=== PATIENT | male | born 1970 | race Caucasian/White ===

== ENCOUNTER 2021-10-11 16:33 | Observation (INO) | payer OTHER ==
[~2021-10-11] VITALS: Ht 182.9 cm; Wt 90.7 kg
[2021-10-11 17:10] LABS: HEMOGLOBIN 17.3 gm/dl (14.0-17.5); RED BLOOD COUNT 5.31 M/UL (4.20-5.50); WHITE BLOOD COUNT 5.3 K/UL (4.5-11.0)
[2021-10-11 17:32] LABS: BUN/CREATININE RATIO 18 (0-10)
[2021-10-12 01:58] LABS: HEMOGLOBIN 16.4 gm/dl (14.0-17.5); RED BLOOD COUNT 5.07 M/UL (4.20-5.50)
[2021-10-12 01:59] LABS: WHITE BLOOD COUNT 7.3 K/UL (4.5-11.0)
[2021-10-12 02:24] LABS: BUN/CREATININE RATIO 22 (0-10)
[2021-10-12] MEDS ORDERED: ASPIRIN EC81 MG PO (11:09)
[2021-10-12] MEDS ORDERED: LIPITOR80 MG PO (11:09)
[2021-10-12] MEDS ORDERED: ENTRESTO 24 MG1 EACH PO (11:10)
[2021-10-12] MEDS ORDERED: CARVEDILOL6.25 MG PO (11:10)
[2021-10-12] MEDS ORDERED: PLAVIX75 MG PO (11:10)
[2021-10-12] MEDS ORDERED: FARXIGA10 MG PO (11:11)
[2021-10-12] MEDS ORDERED: FAMOTIDINE20 MG PO (11:11)
[2021-10-12] MEDS ORDERED: FUROSEMIDE20 MG PO (11:11)
[2021-10-12] MEDS ORDERED: KEPPRA500 MG PO (11:12)
[2021-10-12] MEDS ORDERED: GLIPIZIDE5 MG PO (11:12)
[2021-10-12] MEDS ORDERED: NOVOLIN R100 UNIT/1 INJ (11:17)
[2021-10-12] MEDS ORDERED: RANEXA500 MG PO (11:18)
[2021-10-13 06:38] LABS: HEMOGLOBIN 16.2 gm/dl (14.0-17.5); RED BLOOD COUNT 5.06 M/UL (4.20-5.50); WHITE BLOOD COUNT 5.8 K/UL (4.5-11.0)
[2021-10-13 07:01] LABS: BUN/CREATININE RATIO 26 (0-10)
[2021-10-13] MEDS ORDERED: AUGMENTIN 875-1 EACH PO (09:05)
[2021-10-13] MEDS ORDERED: FARXIGA10 MG PO (12:23)
== END 2021-10-13 16:31 | disposition other institution (70) ==
LOC: ER1 16:33 → CDU 18:38 → MED SURG 4 20:46
PROVIDERS: Emergency Medicine; ADMIT Internal Medicine
DX: R07.89 Other chest pain (principal); I25.10 Atherosclerotic heart disease of native coronary artery without angina pectoris; I25.5 Ischemic cardiomyopathy; I11.0 Hypertensive heart disease with heart failure; I50.22 Chronic systolic (congestive) heart failure; I25.2 Old myocardial infarction; E11.40 Type 2 diabetes mellitus with diabetic neuropathy, unspecified; E78.5 Hyperlipidemia, unspecified; Z95.5 Presence of coronary angioplasty implant and graft; Z88.2 Allergy status to sulfonamides; Z88.8 Allergy status to other drugs, medicaments and biological substances; Z79.02 Long term (current) use of antithrombotics/antiplatelets; Z79.4 Long term (current) use of insulin; Z79.899 Other long term (current) drug therapy; Z20.822 Contact with and (suspected) exposure to COVID-19
CPT/HCPCS: ECHO; 36415; 71045; 80048; 80053; 80307; 81001; 82550; 82553; 82962; 83036; 83735; 83874; 83880; 84484; 85025; 85027; 93005; 93306; 96372; 96374; 99285; G0378; J1650; J2270; U0002

== ENCOUNTER 2021-10-23 01:00 | Inpatient (IN) | payer OTHER ==
[~2021-10-23] VITALS: Ht 182.9 cm; Wt 90.7 kg
[~2021-10-23 01:00] MED LIST: ASPIRIN EC81 MG PO; AUGMENTIN 875-1 EACH PO; CARVEDILOL6.25 MG PO; ENTRESTO 24 MG1 EACH PO; FAMOTIDINE20 MG PO; FARXIGA10 MG PO; FUROSEMIDE20 MG PO; GLIPIZIDE5 MG PO; KEPPRA500 MG PO; LIPITOR80 MG PO; NOVOLIN R100 UNIT/1 INJ; PLAVIX75 MG PO; RANEXA500 MG PO
[2021-10-23 05:13] LABS: RED BLOOD COUNT 5.22 M/UL (4.20-5.50); WHITE BLOOD COUNT 6.4 K/UL (4.5-11.0)
[2021-10-23 05:19] LABS: BUN/CREATININE RATIO 24 (0-10)
[2021-10-23 08:37] LABS: HEMOGLOBIN 15.7 gm/dl (14.0-17.5); RED BLOOD COUNT 4.94 M/UL (4.20-5.50); WHITE BLOOD COUNT 6.3 K/UL (4.5-11.0)
[2021-10-23 09:11] LABS: BUN/CREATININE RATIO 25 (0-10)
[2021-10-24 03:51] LABS: HEMOGLOBIN 15.8 gm/dl (14.0-17.5); RED BLOOD COUNT 4.92 M/UL (4.20-5.50); WHITE BLOOD COUNT 6.1 K/UL (4.5-11.0)
[2021-10-24 04:31] LABS: BUN/CREATININE RATIO 17 (0-10)
--- NOTE | 2021-10-25 06:47 | NUR ---
PATIENT REFUESED TO DRINK DIET POP, WILL ONLY DRINK REGULAR. HE IS DM II AND WAS EDUCATED ABOUT SUGAR INTAKE AND DISEASE PROCESS
[2021-10-26] MEDS ORDERED: RANEXA500 MG PO (12:14)
== END 2021-10-26 14:13 | DRG 287 ==
LOC: ER1 01:00 → CDU 03:24 → M/S 03:24 → CDU 03:24 → M/S 03:24
PROVIDERS: Emergency Medicine; Internal Medicine; ADMIT Internal Medicine
PROC: 4A023N7 Measurement of Cardiac Sampling and Pressure, Left Heart, Percutaneous Approach (ICD-10-PCS; principal; 2021-10-23)
PROC: B2111ZZ Fluoroscopy of Multiple Coronary Arteries using Low Osmolar Contrast (ICD-10-PCS; 2021-10-23)
DX: I25.110 Atherosclerotic heart disease of native coronary artery with unstable angina pectoris (principal); I50.22 Chronic systolic (congestive) heart failure; I25.5 Ischemic cardiomyopathy; E78.5 Hyperlipidemia, unspecified; Z20.822 Contact with and (suspected) exposure to COVID-19; E11.40 Type 2 diabetes mellitus with diabetic neuropathy, unspecified; Z96.612 Presence of left artificial shoulder joint; I11.0 Hypertensive heart disease with heart failure; Z98.890 Other specified postprocedural states; Z82.49 Family history of ischemic heart disease and other diseases of the circulatory system; Z88.2 Allergy status to sulfonamides; Z91.040 Latex allergy status; Z91.048 Other nonmedicinal substance allergy status; Z95.1 Presence of aortocoronary bypass graft; Z79.82 Long term (current) use of aspirin; Z79.899 Other long term (current) drug therapy; I25.2 Old myocardial infarction
CPT/HCPCS: 36415; 71045; 80053; 80061; 82550; 82553; 82962; 83690; 83735; 83874; 83880; 84436; 84443; 84484; 85025; 85027; 85610; 85730; 99152; 99285; C1769; C1887; C1894; G0378; J1644; J2250; J2270; J3010; J7040; Q9967; U0002

== ENCOUNTER → 2021-12-24 | Outpatient (CLI) | payer OTHER ==
[~2021-12-24] MED LIST changes: +CLINDAMYCIN HC300 MG PO; +HYDROCODON-ACE1 EAC4 PO; +LEVOFLOXACIN500 MG PO; +METOPROLOL SUCC50 MG PO; +OMEPRAZOLE20 MG PO
[2021-12-24 17:04] LABS: HEMOGLOBIN 15.2 gm/dl (14.0-17.5); RED BLOOD COUNT 4.85 M/UL (4.20-5.50); WHITE BLOOD COUNT 4.8 K/UL (4.5-11.0)
[2021-12-24 17:27] LABS: BUN/CREATININE RATIO 23 (0-10)
== END ==
LOC: LAB 16:34 → LBRF 16:34
PROVIDERS: Internal Medicine Cardiovascular Disease
DX: I11.0 Hypertensive heart disease with heart failure (principal); I50.22 Chronic systolic (congestive) heart failure; I25.5 Ischemic cardiomyopathy
CPT/HCPCS: 80048; 85025

== ENCOUNTER → 2021-12-26 | Outpatient (CLI) | payer OTHER | END | disposition home or self-care (01) | LOC: CATH 07:10 | DX: I25.5 Ischemic cardiomyopathy (principal); I11.0 Hypertensive heart disease with heart failure; I50.22 Chronic systolic (congestive) heart failure; I25.10 Atherosclerotic heart disease of native coronary artery without angina pectoris; I21.9 Acute myocardial infarction, unspecified; I25.2 Old myocardial infarction; I49.5 Sick sinus syndrome; D68.9 Coagulation defect, unspecified; M06.9 Rheumatoid arthritis, unspecified; E11.9 Type 2 diabetes mellitus without complications; F41.9 Anxiety disorder, unspecified; F32.A Depression, unspecified; E78.00 Pure hypercholesterolemia, unspecified; Z95.5 Presence of coronary angioplasty implant and graft; Z86.73 Personal history of transient ischemic attack (TIA), and cerebral infarction without residual deficits; Z87.891 Personal history of nicotine dependence; Z20.822 Contact with and (suspected) exposure to COVID-19; Z88.2 Allergy status to sulfonamides; Z88.8 Allergy status to other drugs, medicaments and biological substances; Z91.040 Latex allergy status; Z79.82 Long term (current) use of aspirin; Z79.4 Long term (current) use of insulin; Z79.899 Other long term (current) drug therapy; Z82.49 Family history of ischemic heart disease and other diseases of the circulatory system; Z72.89 Other problems related to lifestyle | CPT/HCPCS: 33249; 71045; 93641; 99152; 99153; C1721; C1777; C1898; J1200; J1644; J2250; J2550; J3010; J3370; J7040; J7050; Q9965; U0002 ==

== ENCOUNTER 2022-05-19 23:07 | Observation (INO) | payer OTHER ==
[~2022-05-19] VITALS: Ht 182.9 cm; Wt 93.9 kg
[~2022-05-19 23:07] MED LIST changes: +HUMULIN R100 UNIT/1 INJ; +METOPROLOL SUCC25 MG PO; -NOVOLIN R100 UNIT/1 INJ; +TYLENOL 8 HOUR650 MG PO
[2022-05-19 23:22] LABS: HEMOGLOBIN 15.2 gm/dl (14.0-17.5); RED BLOOD COUNT 4.62 M/UL (4.20-5.50); WHITE BLOOD COUNT 12.6 K/UL (4.5-11.0)
[2022-05-19 23:43] LABS: BUN/CREATININE RATIO 26 (0-10)
[2022-05-20] MEDS ORDERED: RANEXA1000 MG PO (11:09)
[2022-05-20] MEDS ORDERED: PREDNISONE10 MG PO (11:09)
[2022-05-20] MEDS ORDERED: PEPCID20 MG PO (11:10)
[2022-05-20] MEDS ORDERED: NITROGLYCERIN0.4 MG SL (11:10)
[2022-05-20] MEDS ORDERED: METOPROLOL SUCC25 MG PO (11:10)
[2022-05-20] MEDS ORDERED: TYLENOL325 MG PO (11:11)
[2022-05-21 06:43] LABS: HEMOGLOBIN 15.2 gm/dl (14.0-17.5); RED BLOOD COUNT 4.54 M/UL (4.20-5.50)
[2022-05-21 06:45] LABS: WHITE BLOOD COUNT 7.6 K/UL (4.5-11.0)
[2022-05-21 07:17] LABS: BUN/CREATININE RATIO 33 (0-10)
[2022-05-21] MEDS ORDERED: ALDACTONE 25MG25 MG PO (11:25)
== END 2022-05-21 11:50 | disposition other institution (70) ==
LOC: ER1 23:07 → MED SURG 4 05-20 01:58 → CDU 05-20 01:58 → MED SURG 4 05-20 04:04
PROVIDERS: Emergency Medicine; ADMIT Internal Medicine
DX: R07.89 Other chest pain (principal); I11.0 Hypertensive heart disease with heart failure; I50.22 Chronic systolic (congestive) heart failure; E11.9 Type 2 diabetes mellitus without complications; R11.2 Nausea with vomiting, unspecified; R42 Dizziness and giddiness; I25.10 Atherosclerotic heart disease of native coronary artery without angina pectoris; I25.5 Ischemic cardiomyopathy; E78.5 Hyperlipidemia, unspecified; M25.511 Pain in right shoulder; G40.909 Epilepsy, unspecified, not intractable, without status epilepticus; Z88.2 Allergy status to sulfonamides; Z88.8 Allergy status to other drugs, medicaments and biological substances; Z95.810 Presence of automatic (implantable) cardiac defibrillator; Z95.5 Presence of coronary angioplasty implant and graft; Z79.02 Long term (current) use of antithrombotics/antiplatelets; Z79.82 Long term (current) use of aspirin
CPT/HCPCS: 36415; 71045; 80048; 80053; 82550; 82553; 82962; 83735; 84100; 84484; 85025; 93005; 96374; 96375; 96376; 99285; C9113; G0378; J1650; J1885; J2270